=== PATIENT | female | born 2000 | race Caucasian/White ===

== ENCOUNTER 2020-04-07 01:53 | Emergency (ER) | payer MEDICAID ==
[~2020-04-07] VITALS: Ht 149.9 cm; Wt 43.1 kg
[2020-04-07 02:12] VITALS: Ht 149.9 cm; Wt 43.1 kg
[2020-04-07] MEDS ORDERED: VISTARIL (02:13)
[2020-04-07] MEDS ORDERED: OLANZAPINE (02:13)
--- NOTE | 2020-04-07 02:34 | NUR ---
PATIENT BROUGHT INTO ER PER AMBULANCE DUE TO WANTING TO COMMIT SUICIDE. THIS PATIENT IS VERY ANXIOUS, SHE IS TALKING TO HERSELF, LAUGHING OUT LOUD, SHE IS EXTREMELY AGITATED. SHE DENIES THAT VOICES ARE TELLING HER TO HURT HERSELF, SHE IS UP AND DOWN OFF OF THE BED AND GETS INTO THE CORNER OF THE ROOM AND ACTS IF SOMEONE IS COMING CLOSE TO HER, THEREFORE SHE IS PUTTING HER HANDS UP IF TO HOLD SOMEONE BACK OFF OF HER. HER THOUGHTS ARE VERY DISORGANIZED, SHE IS PUTTING HER SOCKS ON HER HANDS. SHE URINATED ON HERSELF UPON ARRIVAL. SHE IS "ARGUING" WITH SOMEONE SAYING "I DON'T CARE WHAT YOU APPROVE OF". HER SPEECH IS VERY PRESSURED AND RAPID. SHE WILL BE PLACED ON ONE TO ONE TO OBSERVE AND STOP ANY ATTEMPTS TO HARM HERSELF, SHE IS NOT TAKING THE 1-800 NUMBER FOR FUTURE REFRENCE.
[2020-04-07 04:41] LABS: BASOPHILS 0.3 % (0-2); EOSINOPHILS 2.2 % (0-7); HEMATOCRIT 41.1 % (36.0-48.0); HEMOGLOBIN 13.5 g/dL (12-16); IMMATURE GRANULOCYTES 0.1 % (0-5); LYMPHOCYTES 30.5 % (15-50); MCH 28.8 pg (26.0-34.0); MCHC 32.8 g/dL (31.0-37.0); MCV 87.6 fL (80.0-100.0); MEAN PLATELET VOLUME 10.9 fL (7.4-10.4); MONOCYTES 6.8 % (2-11); NEUTROPHILS 60.1 % (40-80); PLATELET COUNT 235 10x3/uL (130-400); RBC 4.69 10x6/uL (4.00-5.40); RDW 14.6 % (11.5-14.5); WBC 7.8 10x3/uL (4.8-10.8)
[2020-04-07 04:46] LABS: UDS - AMPHET POSITIVE QUAL (NEGATIVE); UDS - BARB NEGATIVE QUAL (NEGATIVE); UDS - BENZO NEGATIVE QUAL (NEGATIVE); UDS - COCAINE NEGATIVE QUAL (NEGATIVE); UDS - OPIATE NEGATIVE QUAL (NEGATIVE); UDS - PCP NEGATIVE QUAL (NEGATIVE); UDS - THC NEGATIVE QUAL (NEGATIVE)
[2020-04-07 04:47] LABS: CALC OSMOLALITY 281 mosm/kg (275-300); CALCIUM 8.8 mg/dL (8.5-10.1); CARBON DIOXIDE 23.3 mmol/L (21.0-32.0); CHLORIDE - SERUM 106 mmol/L (98-107); CREATININE - SERUM 0.6 mg/dL (0.6-1.3); GLUCOSE 77 mg/dL (74-106); POTASSIUM - SERUM 3.8 mmol/L (3.5-5.1); SODIUM 142 mmol/L (136-145); UREA NITROGEN 12 mg/dL (7-18); eGFR NON AFRICAN AMERICAN > 90 mL/min (90-120)
[2020-04-07 04:53] LABS: ALBUMIN 3.8 g/dL (3.4-5.0); ALKALINE PHOSPHATASE 104 U/L (30-120); ALT (SGPT) 15 U/L (10-68); BILIRUBIN - TOTAL 0.55 mg/dL (0.2-1.3); PROTEIN - SERUM 7.2 g/dL (6.4-8.2)
[2020-04-07 05:27] LABS: HCG SERUM NEGATIVE (NEGATIVE)
[2020-04-07 05:36] LABS: BILIRUBIN NEGATIVE (NEGATIVE); KETONE LARGE mg/dL (NEGATIVE); NITRITE NEGATIVE (NEGATIVE); UROBILINOGEN NORMAL mg/dL (< 2)
[2020-04-07 05:37] LABS: BACTERIA FEW HPF (NONE SEEN); EPITHELIAL CELLS 0-5 /hpf (0-5); WHITE CELLS - URINE 0-5 HPF (0-4)
[2020-04-07 14:43] VITALS: BP 114/63
== END 2020-04-07 14:44 ==
LOC: D.ER 01:53
PROVIDERS: Family Medicine
DX: F23 Brief psychotic disorder (principal); F15.10 Other stimulant abuse, uncomplicated; Z91.14 Patient's other noncompliance with medication regimen